=== PATIENT | male | born 1985 | race Caucasian/White ===

== ENCOUNTER 2021-09-11 00:49 | Emergency (ER) | payer SELFPAY ==
[2021-09-11] MEDS ORDERED: ONDANSETRON 4 MG/2 ML VIAL ONE (01:21)
[2021-09-11 01:25] LABS: Absolute Lymphocytes (CBC) 3.4 K/uL (0.7-4.9); Basophils % 0.4 % (0-1.3); Lymphocytes % 27.4 % (15.3-44.8); MPV 7.1 fL (7.6-11.3); RBC Red Blood Cell Count 4.89 M/uL (4.33-5.43)
[2021-09-11 01:29] LABS: Protime INR 0.97
[2021-09-11 01:47] LABS: ALT/SGPT 31 U/L (12-78); AST/SGOT 23 U/L (15-37); Alkaline Phosphatase 99 U/L (45-117); BUN Blood Urea Nitrogen 8 mg/dL (7-18); Bicarbonate 38 mmol/L (21-32); Bilirubin Direct < 0.1 mg/dL (0-0.2); Bilirubin Total 0.3 mg/dL (0.2-1.0); Glucose Level 202 mg/dL (74-106); Lipase 72 U/L (73-393); Potassium 3.9 mmol/L (3.5-5.1); Sodium Level 141 mmol/L (136-145); Troponin (Emerg Dept Use Only) < 0.02 ng/mL (0.0-0.045)
[2021-09-11 02:25] LABS: Urine Blood Trace-intact (Negative); Urine Glucose Negative (Negative); Urine Protein Trace (Negative); Urine pH 7.5 (5.0-7.0)
[2021-09-11 02:26] LABS: Barbiturates NEGATIVE (NEGATIVE); Benzodiazepines NEGATIVE (NEGATIVE); Cocaine NEGATIVE (NEGATIVE); METHAMPHETAM POSITIVE (NEGATIVE); Methadone NEGATIVE (NEGATIVE); Opiates NEGATIVE (NEGATIVE); Phencyclidine NEGATIVE (NEGATIVE); THC Cannibis POSITIVE (NEGATIVE)
[2021-09-11] MEDS ORDERED: NA CHLORIDE 0.9% 1,000 ML ONE ×2 (03:03→04:19)
[2021-09-11] MEDS ORDERED: LORazepam 2 MG/ML VIAL ONE (04:19)
[2021-09-11] MEDS ORDERED: cloNIDine HCL 0.1 MG TAB ONE ×2 (04:58→05:51)
--- NOTE | 2021-09-11 06:34 | EDPHYS ---
Physician Documentation [facility] Name: Nik Pierre Jr Age: 36 yrs Sex: Male : 1985 Arrival Date: 09/11/2021 Time: 00:51 Bed 17 Private MD: ED Physician Trent Epperson HPI: 09/11 00:45 This 36 yrs old Male presents to ER via EMS with complaints of 1. Overdose. mh7 00:45 The patient presents to the emergency department after a known overdose, that was mh7 accidental, a result of recreational substance abuse. Context: Method: the patient has a confirmed or suspected inhalation, of heroin/opium, Time: today, Extent: moderate exposure, the OD/poisoning occurred at at home, and was witnessed no one, with an unknown downtime, Psychiatric history: none, Previous OD/poisoning history: none. Associated signs and symptoms: Pertinent positives: loss of consciousness, nausea, Pertinent negatives: anxiety, apnea, auditory hallucinations, burning of skin, depression, diaphoresis, diarrhea, dizziness, incontinence, palpitations, shortness of breath, tearfulness, visual hallucinations, vomiting. Severity of symptoms: At their worst the symptoms were severe today, in the emergency department the symptoms have resolved after treatment by EMS personnel. Patient admits to snorting heroin tonight does not remember what happened after that. According to EMS the patient's found him unresponsive on the floor. He was unresponsive at the scene and became awake after receiving Narcan 2 mg IV.. Historical: - Allergies: 00:53 No Known Allergies; df1 - Home Meds: 00:53 None [Active]; df1 - PMHx: 00:53 None; df1 - PSHx: 00:53 None; df1 - Immunization history:: Adult Immunizations not up to date, Client reports having NOT received the Covid vaccine. - Social history:: Smoking status: Patient reports the use of cigarette tobacco products, Patient uses street drugs, heroin, marijuana, Methamphetamine (Meth). ROS: 00:45 Constitutional: Negative for fever, chills, and weight loss, Eyes: Negative for injury, mh7 pain, redness, and discharge, ENT: Negative for injury, pain, and discharge, Neck: Negative for injury, pain, and swelling, Cardiovascular: Negative for chest pain, palpitations, and edema, Respiratory: Negative for shortness of breath, cough, wheezing, and pleuritic chest pain. 00:45 Back: Negative for injury and pain, : Negative for injury, bleeding, discharge, and swelling, MS/Extremity: Negative for injury and deformity, Skin: Negative for injury, rash, and discoloration, Neuro: Negative for headache, weakness, numbness, tingling, and seizure, Psych: Negative for depression, anxiety, suicide ideation, homicidal ideation, and hallucinations, Allergy/Immunology: Negative for hives, rash, and allergies, Endocrine: Negative for neck swelling, polydipsia, polyuria, polyphagia, and marked weight changes, Hematologic/Lymphatic: Negative for swollen nodes, abnormal bleeding, and unusual bruising. 00:45 Abdomen/GI: Negative for abdominal pain, vomiting, diarrhea, constipation, abdominal cramps, abdominal distension, anorexia, dysphagia, hematemesis, black/tarry stool, rectal pain, rectal bleeding, bowel incontinence, flatulence. Exam: 00:45 Constitutional: This is a well developed, well nourished patient who is awake, alert, mh7 and in no acute distress. Head/Face: Normocephalic, atraumatic. Eyes: Pupils equal round and reactive to light, extra-ocular motions intact. Lids and lashes normal. Conjunctiva and sclera are non-icteric and not injected. Cornea within normal limits. Periorbital areas with no swelling, redness, or edema. Neck: Trachea midline, no thyromegaly or masses palpated, and no cervical lymphadenopathy. Supple, full range of motion without nuchal rigidity, or vertebral point tenderness. No Meningismus. Chest/axilla: Normal chest wall appearance and motion. Nontender with no deformity. No lesions are appreciated. Cardiovascular: Regular rate and rhythm with a normal S1 and S2. No gallops, murmurs, or rubs. Normal PMI, no JVD. No pulse deficits. Respiratory: Lungs have equal breath sounds bilaterally, clear to auscultation and percussion. No rales, rhonchi or wheezes noted. No increased work of breathing, no retractions or nasal flaring. Abdomen/GI: Soft, non-tender, with normal bowel sounds. No distension or tympany. No guarding or rebound. No evidence of tenderness throughout. Back: No spinal tenderness. No costovertebral tenderness. Full range of motion. Skin: Warm, dry with normal turgor. Normal color with no rashes, no lesions, and no evidence of cellulitis. MS/ Extremity: Pulses equal, no cyanosis. Neurovascular intact. Full, normal range of motion. Neuro: Awake and alert, GCS 15, oriented to person, place, time, and situation. Cranial nerves II-XII grossly intact. Motor strength 5/5 in all extremities. Sensory grossly intact. Cerebellar exam normal. Normal gait. Psych: Awake, alert, with orientation to person, place and time. Behavior, mood, and affect are within normal limits. Vital Signs: 00:51 BP 129 / 101; Pulse 87; Resp 18; Temp 98.2; Pulse Ox 100% on R/A; Weight 68.04 kg; df1 Height 5 ft. 5 in. (165.10 cm); Pain 0/10; 01:20 BP 144 / 100; Pulse 94; Resp 16; Pulse Ox 100% on R/A; df1 01:32 Pulse 85; Resp 18; Pulse Ox 100% on R/A; df1 02:40 BP 159 / 108; Pulse 72; Resp 18; Pulse Ox 100% on R/A; df1 04:07 BP 150 / 117; Pulse 86; Resp 18; Pulse Ox 100% on R/A; df1 05:24 BP 157 / 108; Pulse 86; Resp 16; Pulse Ox 100% on R/A; df1 06:08 BP 154 / 103; Pulse 94; Resp 18; Pulse Ox 100% on R/A; df1 00:51 Body Mass Index 24.96 (68.04 kg, 165.10 cm) df1 MDM: 06:30 Differential diagnosis: Ingestion/exposure to Heroin polypharmacy, over medication, mh7 hypoglycemia, closed head injury, intracranial hemorrhage, Polysubstance abuse. Data reviewed: vital signs, nurses notes, EMS record, lab test result(s), CBC, drug level(s), alcohol, electrolytes, urinalysis, urine drug screen, EKG, radiologic studies, CT scan. Data interpreted: Pulse oximetry: on room air is 100 %. Interpretation: normal. Counseling: I had a detailed discussion with the patient and/or guardian regarding: the historical points, exam findings, and any diagnostic results supporting the discharge/admit diagnosis, the presence of at least one elevated blood pressure reading (>120/80) during this emergency department visit, lab results, radiology results, the need for outpatient follow up, to return to the emergency department if symptoms worsen or persist or if there are any questions or concerns that arise at home. Response to treatment: the patient's symptoms have resolved after treatment, the patient's blood pressure is in an acceptable range, mental status has returned to baseline, the patient no longer shows bradycardia, the patient is not short of breath, the patient is not tachycardic, the patient's pain is gone, the patient's temperature has normalized, the patient is now symptom free, patient is well hydrated. 06:32 Patient medically screened. [facility] 09/11 00:55 Order name: Acetaminophen [facility] 09/11 00:55 Order name: Basic Metabolic Panel [facility] 09/11 00:55 Order name: CBC with Diff; Complete Time: 01:29 [facility] 09/11 00:55 Order name: ETOH Level; Complete Time: 02:22 [facility] 09/11 00:55 Order name: Hepatic Function; Complete Time: 02:22 09/11 00:55 Order name: PT-INR; Complete Time: 02:22 09/11 00:55 Order name: Ptt, Activated; Complete Time: 02:22 09/11 00:55 Order name: Salicylate; Complete Time: 02:22 09/11 00:55 Order name: Urine Drug Screen; Complete Time: 02:59 09/11 00:55 Order name: Acetaminophen Level; Complete Time: 02:22 [facility] 09/11 00:55 Order name: Basic Metabolic Panel; Complete Time: 02:22 [facility] 09/11 00:56 Order name: Troponin (emerg Dept Use Only); Complete Time: 02:22 09/11 00:56 Order name: Lipase; Complete Time: 02:22 [facility] 09/11 02:24 Order name: Urine Dipstick-Ancillary; Complete Time: 02:59 [facility] 09/11 00:55 Order name: EKG; Complete Time: 00:55 7 09/11 00:55 Order name: EKG - Nurse/Tech; Complete Time: 01:18 09/11 00:55 Order name: IV Saline Lock; Complete Time: 01:18 mh09/11 00:55 Order name: Labs collected and sent; Complete Time: 01:18 [facility] 09/11 00:55 Order name: Urine Dipstick-Ancillary (obtain specimen); Complete Time: 02:19 [facility] 09/11 00:56 Order name: CT Head C Spine [facility] 09/11 05:59 Order name: CPK; Complete Time: 06:30 df1 Administered Medications: 01:18 Drug: Zofran (Ondansetron) 4 mg Route: IVP; Site: right antecubital; df1 02:40 Drug: NS 0.9% 1000 ml Route: IV; Rate: 1000 ml; Site: right antecubital; df1 04:06 Follow up: IV Status: Completed infusion; IV Intake: 1000ml df1 04:06 Drug: NS 0.9% 1000 ml Route: IV; Rate: 1000 ml; Site: right antecubital; df1 06:57 Follow up: IV Status: Completed infusion; IV Intake: 1000ml df1 04:06 Drug: Ativan (LORazepam) 1 mg Route: IVP; Site: right antecubital; df1 06:57 Follow up: Response: No adverse reaction df1 04:37 Drug: cloNIDine 0.1 mg Route: PO; df1 06:57 Follow up: Response: No adverse reaction df1 05:30 Drug: cloNIDine 0.1 mg Route: PO; df1 06:57 Follow up: Response: No adverse reaction df1 Disposition Summary: 09/11/21 06:32 Discharge Ordered Location: Home [facility] Problem: new [facility] Symptoms: have improved [facility] Condition: Stable [facility] Diagnosis - Heroin overdose [facility] - Methamphetamine abuse [facility] Followup: [facility] - With: Private Physician - When: 1 - 2 days - Reason: Worsening of condition, Recheck today's complaints, Continuance of care, Re-evaluation by your physician Discharge Instructions: - Discharge Summary Sheet [facility] - Opioid Overdose [facility] - Methamphetamines Use Disorder [facility] Forms: - Medication Reconciliation Form [facility] - Thank You Letter [facility] - Antibiotic Education [facility] - Prescription Opioid Use [facility] Signatures: Dispatcher [employer] Trent Sylvester MD MD 7 Evelyn Moncada df1 Corrections: (The following items were deleted from the chart) 02:34 00:55 Suicide Screening ([place]) ordered. mh7 df1
--- NOTE | 2021-09-11 06:34 | ER ---
Nurse's Notes [facility] Name: Nik Pierre Jr Age: 36 yrs Sex: Male : 1985 Arrival Date: 09/11/2021 Time: 00:51 Bed 17 Private MD: Diagnosis: Heroin overdose;Methamphetamine abuse Presentation: 09/11 00:51 Chief complaint: Patient states: Heroin OD. Coronavirus screen: Vaccine status: Patient df1 reports being unvaccinated. Client denies travel out of the [place] in the last 14 days. At this time, the client does not indicate any symptoms associated with coronavirus-19. The client denies any previous COVID testing. Ebola Screen: Patient negative for fever greater than or equal to 101.5 degrees Fahrenheit, and additional compatible Ebola Virus Disease symptoms Patient denies exposure to infectious person. Patient denies travel to an Ebola-affected area in the 21 days before illness onset. Initial Sepsis Screen: Does the patient meet any 2 criteria? No. Patient's initial sepsis screen is negative. Does the patient have a suspected source of infection? No. Patient's initial sepsis screen is negative. Risk Assessment: Do you want to hurt yourself or someone else? Patient reports no desire to harm self or others. Onset of symptoms was September 11, 2021 at 00:00. 00:51 Method Of Arrival: EMS: [facility] df1 00:51 Acuity: ARCHANA 3 df1 02:36 Note Pt given ice chips, pillow and blanket. spouse at bedside. No further requests. df1 04:07 Note Provider notified of continuous HTN during ER visit. Orders received. df1 04:08 Note Pt requesting food and given sandwich and chips. df1 06:56 Note Pt sitting up in bed eating a sandwich. A\T\Ox4. PT TO BE DC'D HOME. df1 Triage Assessment: 01:19 General: Appears uncomfortable, unkempt, Behavior is calm, cooperative. Pain: Denies df1 pain. Historical: - Allergies: 00:53 No Known Allergies; df1 - Home Meds: 00:53 None [Active]; df1 - PMHx: 00:53 None; df1 - PSHx: 00:53 None; df1 - Immunization history:: Adult Immunizations not up to date, Client reports having NOT received the Covid vaccine. - Social history:: Smoking status: Patient reports the use of cigarette tobacco products, Patient uses street drugs, heroin, marijuana, Methamphetamine (Meth). Screenin:19 Abuse screen: Denies threats or abuse. Nutritional screening: No deficits noted. df1 Tuberculosis screening: No symptoms or risk factors identified. Fall Risk None identified. Assessment: 02:35 General: Appears in no apparent distress. Behavior is calm, cooperative. Pain: Denies df1 pain. Neuro: No deficits noted. Cardiovascular: No deficits noted. Respiratory: Airway is patent Respiratory effort is even, unlabored, Respiratory pattern is regular, symmetrical. GI: Reports nausea. : No deficits noted. EENT: No deficits noted. Derm: No deficits noted. Musculoskeletal: No deficits noted. 02:40 Neuro: Level of Consciousness is awake, alert, obeys commands, Oriented to person, df1 place, time, situation, Water Reuse Program Manager are equal bilaterally Moves all extremities. Full function Gait is steady, Speech is normal, Facial symmetry appears normal, Pupils are PERRLA, Intact. Vital Signs: 00:51 BP 129 / 101; Pulse 87; Resp 18; Temp 98.2; Pulse Ox 100% on R/A; Weight 68.04 kg; df1 Height 5 ft. 5 in. (165.10 cm); Pain 0/10; 01:20 BP 144 / 100; Pulse 94; Resp 16; Pulse Ox 100% on R/A; df1 01:32 Pulse 85; Resp 18; Pulse Ox 100% on R/A; df1 02:40 BP 159 / 108; Pulse 72; Resp 18; Pulse Ox 100% on R/A; df1 04:07 BP 150 / 117; Pulse 86; Resp 18; Pulse Ox 100% on R/A; df1 05:24 BP 157 / 108; Pulse 86; Resp 16; Pulse Ox 100% on R/A; df1 06:08 BP 154 / 103; Pulse 94; Resp 18; Pulse Ox 100% on R/A; df1 00:51 Body Mass Index 24.96 (68.04 kg, 165.10 cm) df1 ED Course: 00:51 Patient arrived in ED. df1 00:51 Evelyn Moncada is Primary Nurse. df1 00:53 Triage completed. df1 00:54 Trent Epperson MD is Attending Physician. 7 01:17 No provider procedures requiring assistance completed. Inserted saline lock: 20 gauge df1 in right antecubital area, using aseptic technique. 01:18 Lipase Sent. df1 01:18 Troponin (emerg Dept Use Only) Sent. df1 01:18 Acetaminophen Level Sent. df1 01:18 Basic Metabolic Panel Sent. df1 01:18 Acetaminophen Sent. df1 01:18 Basic Metabolic Panel Sent. df1 01:19 CBC with Diff Sent. df1 01:19 ETOH Level Sent. df1 01:19 Hepatic Function Sent. df1 01:19 PT-INR Sent. df1 01:19 Ptt, Activated Sent. df1 01:19 Salicylate Sent. df1 01:19 Arm band placed on right wrist. df1 01:20 Patient has correct armband on for positive identification. Placed in gown. Bed in low df1 position. Call light in reach. Side rails up X 1. Side rails up X2. monitor worker on. Pulse ox on. NIBP on. 02:15 CT Head C Spine In Process Unspecified. EDMS 02:20 Urine Drug Screen Sent. df1 07:09 IV discontinued, intact, No redness/swelling at site. Pressure dressing applied. df1 Administered Medications: 01:18 Drug: Zofran (Ondansetron) 4 mg Route: IVP; Site: right antecubital; df1 02:40 Drug: NS 0.9% 1000 ml Route: IV; Rate: 1000 ml; Site: right antecubital; df1 04:06 Follow up: IV Status: Completed infusion; IV Intake: 1000ml df1 04:06 Drug: NS 0.9% 1000 ml Route: IV; Rate: 1000 ml; Site: right antecubital; df1 06:57 Follow up: IV Status: Completed infusion; IV Intake: 1000ml df1 04:06 Drug: Ativan (LORazepam) 1 mg Route: IVP; Site: right antecubital; df1 06:57 Follow up: Response: No adverse reaction df1 04:37 Drug: cloNIDine 0.1 mg Route: PO; df1 06:57 Follow up: Response: No adverse reaction df1 05:30 Drug: cloNIDine 0.1 mg Route: PO; df1 06:57 Follow up: Response: No adverse reaction df1 Intake: 04:06 IV: 1000ml; Total: 1000ml. df1 06:57 IV: 1000ml; Total: 2000ml. df1 Outcome: 06:32 Discharge ordered by . Raijv 07:09 Discharged to home ambulatory. df1 07:09 Condition: good 07:09 Discharge instructions given to patient, significant other, Instructed on discharge instructions, follow up and referral plans. Demonstrated understanding of instructions, follow-up care. 07:09 Patient left the ED. df1 Signatures: Dispatcher [employer] Trent Sylvester MD MD [facility] Evelyn Moncada df1
[2021-09-11 07:17] VITALS: TEMP 98.2; O2SAT 100
[2021-09-11 07:25] VITALS: BP 154/103
--- NOTE | 2021-09-11 14:26 | RAD REPORT ---
CLINICAL HISTORY: The patient is 36 years old and is Male; trauma TECHNIQUE: Axial computed tomography images of the head/brain and cervical spine without intravenous contrast. Sagittal and coronal reformatted images were created and reviewed. This CT exam was pe rformed using one or more of the following dose reduction techniques: automated exposure control, a djustment of the mA and/or kV according to patient size, and/or use of iterative reconstruction techn ique. COMPARISON: No relevant prior studies available. FINDINGS: Brain: Unremarkable. No hemorrhage. No significant white matter disease. No edema. Ventricles: Unremarkable. No ventriculomegaly. Skull: No acute fracture. Sinuses: Unremarkable as visualized. No acute sinusitis. Mastoid air cells: Unremarkable as visualized. No mastoid effusion. Vertebrae: No acute cervical spine fracture or subluxation. Straightening of the normal cervical lordosis. Discs/spinal canal/neural foramina: No acute findings. No spinal canal stenosis. Soft tissues: Mild left posterior scalp swelling. IMPRESSION: 1. No acute intracranial abnormality. 2. No acute cervical spine fracture or subluxation. Electronically signed by: uHnter Mancilla MD 09/11/2021 2:40 AM CDT Due to temporary technical issues with the PACS/Fluency reporting system, reports are being signed by the in house radiologists without review as a courtesy to insure prompt reporting. The interpreting radiologist is fully responsible for the content of the report.
== END 2021-09-11 07:09 | disposition home or self-care (01) ==
LOC: ER 00:49
DX: T40.1X1A Poisoning by heroin, accidental (unintentional), initial encounter (principal); F15.10 Other stimulant abuse, uncomplicated; F17.210 Nicotine dependence, cigarettes, uncomplicated
CPT/HCPCS: 36415; 70450; 72125; 80048; 80076; 80307; 80320; 80329; 81003; 82550; 83690; 84484; 85025; 85610; 85730; 93005; 96361; 96374; 96375; 99284; J2405; J7030

== ENCOUNTER 2021-09-24 15:25 | Emergency (ER) | payer SELFPAY ==
[2021-09-24] MEDS ORDERED: NA CHLORIDE 0.9% 1,000 ML ONE (15:38)
[2021-09-24 15:54] LABS: Absolute Lymphocytes (CBC) 3.6 K/uL (0.7-4.9); Basophils % 0.5 % (0-1.3); Hematocrit 41.7 % (39.6-49.0); Lymphocytes % 27.2 % (15.3-44.8); MPV 7.3 fL (7.6-11.3); RBC Red Blood Cell Count 4.56 M/uL (4.33-5.43)
[2021-09-24 16:06] LABS: Protime INR 0.97
[2021-09-24 16:08] LABS: Albumin 4.3 g/dL (3.4-5.0); BUN Blood Urea Nitrogen 20 mg/dL (7-18); Bicarbonate 31 mmol/L (21-32); Glucose Level 80 mg/dL (74-106); Potassium 3.5 mmol/L (3.5-5.1); Sodium Level 142 mmol/L (136-145)
[2021-09-24 16:16] LABS: ALT/SGPT 98 U/L (12-78); AST/SGOT 60 U/L (15-37); Alkaline Phosphatase 89 U/L (45-117); Bilirubin Direct 0.1 mg/dL (0-0.2); Bilirubin Total 0.5 mg/dL (0.2-1.0); Protein, Total 8.1 g/dL (6.4-8.2)
--- NOTE | 2021-09-24 16:19 | RAD REPORT ---
EXAM DESCRIPTION: CT - [id number] - 09/24/2021 4:11 pm CLINICAL HISTORY: Trauma, head and neck injury. PAIN COMPARISON: Head C Spine Mpr Wo Con dated 09/11/2021 TECHNIQUE: Axial 5 mm thick images of the head were obtained. Axial 2 mm thick images of the cervical spine were obtained with sagittal and coronal reconstruction images generated and reviewed. All CT scans are performed using dose optimization technique as appropriate and may include automated exposure control or mA/KV adjustment according to patient size. FINDINGS: CT HEAD WITHOUT CONTRAST: No acute hemorrhage, hydrocephalus or extra-axial collection is identified.No areas of brain edema or midline shift. The paranasal sinuses and mastoids are clear.The calvarium is intact. CT CERVICAL SPINE WITHOUT CONTRAST: No fracture or subluxation.No prevertebral soft tissues swelling is identified. IMPRESSION: No acute intracranial or cervical spine findings.
--- NOTE | 2021-09-24 16:23 | RAD REPORT ---
EXAM DESCRIPTION: CT - CTFB CLINICAL HISTORY: PAIN COMPARISON: No comparisons TECHNIQUE: Axial 2 mm thick images of the face were obtained with sagittal and coronal reconstructio n images. All CT scans are performed using dose optimization technique as appropriate and may include automated exposure control or mA/KV adjustment according to patient size. FINDINGS: No acute facial bone fracture is seen.The mandible is intact. The globes and orbital contents are grossly unremarkable.The paranasal sinuses and mastoids are clear . The mandibular condyles are subluxed anteriorly at the bilateral temporomandibular joints. This is of uncertain chronicity. IMPRESSION: No facial fracture identified. At the temporomandibular joints, the mandibular condyles are subluxed anteriorly and inferiorly. This is of uncertain chronicity. No mandibular fracture is id entified. No facial fractures seen.
[2021-09-24 16:27] LABS: Urine Blood Trace-lysed (Negative); Urine Glucose Negative (Negative); Urine Protein Negative (Negative); Urine Specific Gravity 1.025 (1.005-1.030)
[2021-09-24] MEDS ORDERED: IBUPROFEN 400 MG TAB ONE (16:28)
[2021-09-24] MEDS ORDERED: LIDOCAINE 1% MPF 5 ML VIAL ONE (16:47)
[2021-09-24 16:55] LABS: Barbiturates NEGATIVE (NEGATIVE); Benzodiazepines POSITIVE (NEGATIVE); Cocaine NEGATIVE (NEGATIVE); METHAMPHETAM POSITIVE (NEGATIVE); Methadone NEGATIVE (NEGATIVE); Opiates NEGATIVE (NEGATIVE); Phencyclidine NEGATIVE (NEGATIVE); THC Cannibis POSITIVE (NEGATIVE)
[2021-09-24] MEDS ORDERED: LIDOCAINE 1% MPF 30 ML VIAL ONE (17:05)
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
[2021-09-24 20:03] VITALS: O2SAT 100
[2021-09-24 20:06] VITALS: BP 118/78; TEMP 98
--- NOTE | 2021-09-26 18:29 | EKG ---
Test Date: 2021-09-24 Test Time: 16:36:08 Home Health Provider: KIMBER MEASUREMENT RESULTS: Intervals: Rate: 86 OK: 116 QRSD: 88 QT: 378 QTc: 452 Prospect: P: 69 OK: 116 QRS: 81 T: 65 INTERPRETIVE STATEMENTS: Normal sinus rhythm RSR' or QR pattern in V1 suggests right ventricular conduction delay Borderline ECG Compared to ECG 09/11/2021 01:17:53 RSR' in V1 or V2 now present Atrial abnormality no longer present Prolonged QT interval no longer present Electronically Signed On 09-26-21 18:24:07 SKILLS TRAINER by Vitaly Card
== END 2021-09-24 19:47 | disposition home or self-care (01) ==
LOC: ER 15:25
PROC: 0CQ1XZZ Repair Lower Lip, External Approach (ICD-10-PCS; principal; 2021-09-24)
DX: S01.511A Laceration without foreign body of lip, initial encounter (principal); T42.4X5A Adverse effect of benzodiazepines, initial encounter; I10 Essential (primary) hypertension; F17.210 Nicotine dependence, cigarettes, uncomplicated
CPT/HCPCS: 36415; 70450; 70486; 72125; 76377; 80048; 80076; 80307; 80320; 80329; 81003; 85025; 85610; 85730; 93005; 96360; 99284; J7030

== ENCOUNTER 2022-02-16 23:46 | Observation (INO) | payer SELFPAY ==
[2022-02-17] MEDS ORDERED: MORPHINE 4 MG/ML SYR ONE ×2 (01:56→09:08)
[2022-02-17] MEDS ORDERED: ONDANSETRON 4 MG/2 ML VIAL ONE (01:56)
[2022-02-17] MEDS ORDERED: VANCOMYCIN 1 GM/VIAL ONE (01:56)
[2022-02-17] MEDS ORDERED: CLINDAMYCIN 900MG/D5W 900 MG/50 ML IVPB IV ONE (01:57)
[2022-02-17] MEDS ORDERED: NA CHLORIDE 0.9% 500 ML ONE (01:57)
[2022-02-17 02:10] LABS: Absolute Lymphocytes (CBC) 3.2 K/uL (0.7-4.9); Hematocrit 44.1 % (39.6-49.0); Lymphocytes % 19.1 % (15.3-44.8); MPV 7.6 fL (7.6-11.3); RBC Red Blood Cell Count 4.87 M/uL (4.33-5.43)
--- NOTE | 2022-02-17 02:10 | P.HP ---
Certification for Inpatient Patient admitted to: Observation With expected LOS: <2 Midnights Patient will require the following post-hospital care: None Practitioner: I am a practitioner with admitting privileges, knowledge of patient current condition, hospital course, and medical plan of care. Services: Services provided to patient in accordance with Admission requirements found in Title 42 Section 412.3 of the Code of Federal Regulations Patient History Date of Service: 02/17/22 Reason for admission: Nasal abscess History of Present Illness: 36-year-old male with history of hypertension who is currently not on any medications presents emergency department for swelling and pain of the nose, upper lip. Patient reports that today before yesterday he was using a nose hair srinivas and noticed swelling and pain starting yesterday morning. Patient has significant swelling of the upper lip, pain in the left nare. Patient was evaluated by the ED physician who consulted with ENT, plan is for admission to the hospital service and consultation with ENT in the morning. CBC/CMP and CT maxillofacial pending. - Past Medical/Surgical History -: Hypertension -: none Psychosocial/ Personal History: Works at [employer], lives at home with family - Family History Family History: Reviewed- Non-Contributory - Social History Smoking Status: Current every day smoker Counseled patient to stop smoking for: less than 10 minutes Smoking therapy provided: No Alcohol use: Yes CD- Drugs: No Caffeine use: No Place of Residence: Home Review of Systems 10-point ROS is otherwise unremarkable Integumentary: Other (Facial swelling/left nare/upper lip), As per HPI Physical Examination - Physical Exam General: Alert, In no apparent distress, Oriented x3 HEENT: Atraumatic, PERRLA, Mucous membr. moist/pink, EOMI, Sclerae nonicteric Neck: Supple, 2+ carotid pulse no bruit, No LAD, Without JVD or thyroid abnormality Respiratory: Clear to auscultation bilaterally, Normal air movement Cardiovascular: Regular rate/rhythm, Normal S1 S2 Gastrointestinal: Normal bowel sounds, No tenderness Musculoskeletal: No tenderness, Swelling (Left nare, upper lip), Tenderness Integumentary: No rashes Neurological: Normal speech, Normal strength at 5/5 x4 extr, Normal tone, Normal affect Assessment and Plan - Plan Assessment: Nasal abscess Hypertension Plan: Nasal abscess: Continue Bactroban, clindamycin. ENT consulted n.p.o. for now. As needed pain medications. CT pending for further evaluation. Hypertension: Not on any medications at home will monitor blood pressure throughout hospitalization may require medication at discharge. DVT PPX: SCD Code status: Full Discharge Plan: Home Plan to discharge in: 24 Hours - Advance Directives Does patient have a Living Will: No Does patient have a Durable POA for Healthcare: No - Code Status/Comfort Care Code Status Assessed: Yes (Full) Critical Care: No Time Spent Managing Pts Care (In Minutes): 55
[2022-02-17 02:28] LABS: ALT/SGPT 23 U/L (12-78); AST/SGOT 11 U/L (15-37); Albumin 3.8 g/dL (3.4-5.0); Alkaline Phosphatase 80 U/L (45-117); BUN Blood Urea Nitrogen 12 mg/dL (7-18); Bicarbonate 29 mmol/L (21-32); Bilirubin Total 0.3 mg/dL (0.2-1.0); Glucose Level 98 mg/dL (74-106); Potassium 3.5 mmol/L (3.5-5.1); Protein, Total 8.1 g/dL (6.4-8.2); Sodium Level 138 mmol/L (136-145)
[2022-02-17] MEDS ORDERED: ONDANSETRON 4 MG/2 ML VIAL IV PRN (03:50)
[2022-02-17] MEDS ORDERED: NA CHLORIDE 0.9% 1,000 ML IV SCH (03:50)
[2022-02-17] MEDS ORDERED: MORPHINE 2 MG/ML SYR IV PRN ×2 (03:50→07:58)
--- NOTE | 2022-02-17 03:53 | ER ---
Nurse's Notes [facility] Name: Nik Pierre Jr Age: 36 yrs Sex: Male : 1985 Arrival Date: 02/16/2022 Time: 23:48 Bed 26 Private MD: Diagnosis: Cutaneous abscess of face-nasal Presentation: 02/16 23:58 Chief complaint: Patient states: "I used a new nose srinivas the other day. Today I woke tw5 up with so much pressure. I tried to squeeze it. It has only gotten worse. My family has been calling me a 'who' all day because it is make my lip swell.". Coronavirus screen: Vaccine status: Patient reports being unvaccinated. Ebola Screen: Patient negative for fever greater than or equal to 101.5 degrees Fahrenheit, and additional compatible Ebola Virus Disease symptoms Patient denies exposure to infectious person. Patient denies travel to an Ebola-affected area in the 21 days before illness onset. Initial Sepsis Screen: Does the patient meet any 2 criteria? HR > 90 bpm. Does the patient have a suspected source of infection? Yes: Skin breakdown/wound. Risk Assessment: Do you want to hurt yourself or someone else? Patient reports no desire to harm self or others. Onset of symptoms was February 16, 2022. 23:58 Method Of Arrival: Ambulatory [facility] 23:58 Acuity: ARCHANA 3 tw5 Triage Assessment: 02/17 00:00 General: Appears uncomfortable. General: Behavior is calm, cooperative, appropriate for tw5 age. Pain: Complains of pain in nose Pain currently is 10 out of 10 on a pain scale. Historical: - Allergies: 00:00 No Known Allergies; tw5 - Home Meds: 00:00 None [Active]; tw5 - PMHx: 00:00 Hypertensive disorder; tw5 - PSHx: 00:00 None; tw5 - Immunization history:: Flu vaccine is not up to date. - Social history:: Smoking status: Patient reports the use of cigarette tobacco products, smokes one-half pack cigarettes per day. Screenin:10 Abuse screen: Denies threats or abuse. Denies injuries from another. Nutritional tk1 screening: No deficits noted. Tuberculosis screening: No symptoms or risk factors identified. Fall Risk None identified. Assessment: 00:10 General: Appears uncomfortable, slender, well groomed, well developed, well nourished, tk1 Behavior is calm, cooperative, appropriate for age. Pain: Complains of pain in nasal septum and left nostril Pain radiates to philtrum, upper vermilion border and upper lip Pain currently is 10 out of 10 on a pain scale. Quality of pain is described as pressure, sharp, Pain began 2-3 days ago. Is continuous. Neuro: Level of Consciousness is awake, alert, obeys commands, Oriented to person, place, time, situation, Appropriate for age Marketing Technology Coordinator are equal bilaterally Moves all extremities. Gait is steady, Speech is normal, Facial symmetry appears normal. Cardiovascular: Capillary refill < 3 seconds is brisk in bilateral fingers. Respiratory: Airway is patent Respiratory effort is even, unlabored, Respiratory pattern is regular, symmetrical. GI: No deficits noted. No signs and/or symptoms were reported involving the gastrointestinal system. : No deficits noted. No signs and/or symptoms were reported regarding the genitourinary system. EENT: Nares on left redness and edema.. Musculoskeletal: No deficits noted. No signs and/or symptoms reported regarding the musculoskeletal system. Vital Signs: 02/16 23:58 BP 149 / 96; Pulse 103; Resp 20; Temp 97.9; Pulse Ox 100% on R/A; Weight 72.57 kg; tw5 Height 5 ft. 5 in. (165.10 cm); Pain 10/10; 23:58 Body Mass Index 26.63 (72.57 kg, 165.10 cm) tw5 ED Course: 23:48 Patient arrived in ED. kc5 02/17 00:00 Triage completed. tw5 00:00 Arm band placed on left wrist. tw5 00:08 Shiloh Cho is Primary Nurse. tk1 00:10 Patient has correct armband on for positive identification. Call light in reach. tk1 00:10 No provider procedures requiring assistance completed. tk1 00:50 Darryn Moulton MD is Attending Physician. tylor 01:37 Ramón Schaefer MD is Hospitalizing Provider. tylor 02:00 Inserted saline lock: 18 gauge in right forearm, using aseptic technique. Blood tk1 collected. 04:17 CBC with Diff Sent. sm5 04:17 Comprehensive Metabolic Panel Sent. sm5 04:17 SARS-COV-2 RT PCR (Document "Date of Onset" if Symptomatic) Sent. [facility] Administered Medications: 02:15 Drug: morphine 4 mg Route: IVP; Rate: 2 mg/min; Infused Over: 2 mins; Site: right tk1 forearm; 07:06 Follow up: Response: No adverse reaction solomon 02:20 Drug: Clindamycin 900 mg Route: IVPB; Rate: 100 ml/hr; Infused Over: 30 mins; Site: tk1 right forearm; Delivery: Primary tubing; 07:06 Follow up: IV Status: Completed infusion solomon 02:20 Drug: Zofran (Ondansetron) 4 mg Route: IVP; Rate: 2 mg/min; Infused Over: 2 mins; Site: tk1 right forearm; 07:06 Follow up: Response: No adverse reaction solomon 02:20 Drug: Bactroban (mupirocin) Ointment 2 % 1 application Route: Topical; Site: affected tk1 area; 07:06 Follow up: Response: No adverse reaction solomon 02:55 Dru grams of (vancoMYCIN 2 grams, NS 0.9% 500 ml) Route: IVPB; Rate: calculated tk1 rate; Infused Over: 2 hrs; Site: right forearm; Delivery: Primary tubing; 07:06 Follow up: IV Status: Completed infusion solomon 10:00 Drug: Ketamine 0.5 mg/kg Route: IVP; Site: right forearm; iw 10:00 Drug: Versed (midazolam) 1 mg Route: IVP; Site: right forearm; Outcome: 01:38 Decision to Hospitalize by Provider. [facility] 16:12 Patient left the ED. iw Signatures: Darryn Moulton MD MD cha Williams, Irene RN [place] 5 Lauren Grider kc5 Anna Correa RN RN 5 Thi Keane RN RN ha Kirby, Tammie tk
--- NOTE | 2022-02-17 03:53 | EDPHYS ---
Physician Documentation [facility] Name: Nik Pierre Jr Age: 36 yrs Sex: Male : 1985 Arrival Date: 02/16/2022 Time: 23:48 Bed 26 Private MD: HARLEY Physician Darryn Moulton HPI: 02/17 01:30 This 36 yrs old Male presents to ER via Ambulatory with complaints of Facial tylor Swelling. 01:30 The patient presents with a nose bleed. tylor Historical: - Allergies: 00:00 No Known Allergies; tw5 - Home Meds: 00:00 None [Active]; tw5 - PMHx: 00:00 Hypertensive disorder; tw5 - PSHx: 00:00 None; tw5 - Immunization history:: Flu vaccine is not up to date. - Social history:: Smoking status: Patient reports the use of cigarette tobacco products, smokes one-half pack cigarettes per day. ROS: 01:35 Constitutional: Negative for fever, chills, and weight loss, Eyes: Negative for injury, tylor pain, redness, and discharge, Neck: Negative for injury, pain, and swelling, Cardiovascular: Negative for chest pain, palpitations, and edema, Respiratory: Negative for shortness of breath, cough, wheezing, and pleuritic chest pain, Abdomen/GI: Negative for abdominal pain, nausea, vomiting, diarrhea, and constipation, Back: Negative for injury and pain, : Negative for injury, bleeding, discharge, and swelling, MS/Extremity: Negative for injury and deformity, Skin: Negative for injury, rash, and discoloration, Neuro: Negative for headache, weakness, numbness, tingling, and seizure. 01:35 ENT: Positive for of the nose and mouth, nasal discharge. Exam: 01:35 Constitutional: This is a well developed, well nourished patient who is awake, alert, tylor and in no acute distress. Head/Face: Normocephalic, atraumatic. Eyes: Pupils equal round and reactive to light, extra-ocular motions intact. Lids and lashes normal. Conjunctiva and sclera are non-icteric and not injected. Cornea within normal limits. Periorbital areas with no swelling, redness, or edema. Neck: Trachea midline, no thyromegaly or masses palpated, and no cervical lymphadenopathy. Supple, full range of motion without nuchal rigidity, or vertebral point tenderness. No Meningismus. Chest/axilla: Normal chest wall appearance and motion. Nontender with no deformity. No lesions are appreciated. Cardiovascular: Regular rate and rhythm with a normal S1 and S2. No gallops, murmurs, or rubs. Normal PMI, no JVD. No pulse deficits. Respiratory: Lungs have equal breath sounds bilaterally, clear to auscultation and percussion. No rales, rhonchi or wheezes noted. No increased work of breathing, no retractions or nasal flaring. Abdomen/GI: Soft, non-tender, with normal bowel sounds. No distension or tympany. No guarding or rebound. No evidence of tenderness throughout. Back: No spinal tenderness. No costovertebral tenderness. Full range of motion. Male : Normal genitalia with no discharge or lesions. Skin: Warm, dry with normal turgor. Normal color with no rashes, no lesions, and no evidence of cellulitis. MS/ Extremity: Pulses equal, no cyanosis. Neurovascular intact. Full, normal range of motion. Neuro: Awake and alert, GCS 15, oriented to person, place, time, and situation. Cranial nerves II-XII grossly intact. Motor strength 5/5 in all extremities. Sensory grossly intact. Cerebellar exam normal. Normal gait. Psych: Awake, alert, with orientation to person, place and time. Behavior, mood, and affect are within normal limits. 01:35 ENT: Nose: External nose: erythema is noted, swelling is noted, apex of the nose, nasal septum, right nostril and left nostril. Vital Signs: 02/16 23:58 BP 149 / 96; Pulse 103; Resp 20; Temp 97.9; Pulse Ox 100% on R/A; Weight 72.57 kg; tw5 Height 5 ft. 5 in. (165.10 cm); Pain 10/10; 23:58 Body Mass Index 26.63 (72.57 kg, 165.10 cm) tw5 Procedures: 02/17 10:36 Moderate sedation: Pre-procedure assessment: the patient has been NPO 12 hour(s) prior rn to arrival, ASA physical classification: I - healthy, no underlying organic disease, Airway assessment: able to hyperextend neck, able to maintain airway, can open mouth without difficulty, Monitoring during procedure: cardiac nurse practitioner, continuous pulse oximetry, nurse at bedside at all times, Medications employed: Ketamine, 35 mg(s), Versed, 2 mg(s), Post-procedure assessment: the patient is not sedated, Respiratory status: even and unlabored, a reversal agent was not used. MDM: 00:50 Patient medically screened. [facility] 01:36 Data reviewed: vital signs, nurses notes, lab test result(s). Data interpreted: Cardiac tylor monitor: rate is 103 beats/min, rhythm is regular, Pulse oximetry: on room air is 100 %. Counseling: I had a detailed discussion with the patient and/or guardian regarding: the historical points, exam findings, and any diagnostic results supporting the discharge/admit diagnosis, lab results, the need for further work-up and treatment in the hospital. 10:36 ED course: Dr Seo called, requested moderate sedation since can't get into OR. rn Moderate sedation performed, tolerated well with ketamine and versed. . 02/17 01:30 Order name: CBC with Diff [facility] 02/17 01:30 Order name: Comprehensive Metabolic Panel [facility] 02/17 02:08 Order name: SARS-COV-2 RT PCR (Document "Date of Onset" if Symptomatic) [facility] 02/17 03:47 Order name: CBC with Automated Diff [facility] 02/17 03:47 Order name: Comprehensive Metabolic Panel [facility] 02/17 03:47 Order name: SARS-COV-2 RT PCR [facility] 02/17 01:58 Order name: Maxillofacial W/Cont CT la1 Administered Medications: 02:15 Drug: morphine 4 mg Route: IVP; Rate: 2 mg/min; Infused Over: 2 mins; Site: right tk1 forearm; 07:06 Follow up: Response: No adverse reaction solomon 02:20 Drug: Clindamycin 900 mg Route: IVPB; Rate: 100 ml/hr; Infused Over: 30 mins; Site: tk1 right forearm; Delivery: Primary tubing; 07:06 Follow up: IV Status: Completed infusion solomon 02:20 Drug: Zofran (Ondansetron) 4 mg Route: IVP; Rate: 2 mg/min; Infused Over: 2 mins; Site: tk1 right forearm; 07:06 Follow up: Response: No adverse reaction solomon 02:20 Drug: Bactroban (mupirocin) Ointment 2 % 1 application Route: Topical; Site: affected tk1 area; 07:06 Follow up: Response: No adverse reaction solomon 02:55 Dru grams of (vancoMYCIN 2 grams, NS 0.9% 500 ml) Route: IVPB; Rate: calculated tk1 rate; Infused Over: 2 hrs; Site: right forearm; Delivery: Primary tubing; 07:06 Follow up: IV Status: Completed infusion solomon 10:00 Drug: Ketamine 0.5 mg/kg Route: IVP; Site: right forearm; iw 10:00 Drug: Versed (midazolam) 1 mg Route: IVP; Site: right forearm; iw Disposition Summary: 02/17/22 01:38 Hospitalization Ordered Hospitalization Status: Observation tylor Provider: Ramón Schaefer cha Condition: Stable tylor Problem: new tylor Symptoms: have improved tylor Bed/Room Type: Standard tylor Location: [facility] ER HOLD(02/17/22 02:30) cg Room Assignment: ERHOLD-(02/17/22 02:30) cg Diagnosis - Cutaneous abscess of face - nasal tylor Forms: - Medication Reconciliation Form tylor - SBAR form tylor Signatures: Dispatcher [employer] EDDarryn Harris MD MD cha Williams, Irene RN JOON Narinder Schaefer MD MD rn Garcia, Cindy, RN RN cg Wood, Tiffany [facility] Shiloh Cho1 Thi Keane RN Corrections: (The following items were deleted from the chart) 02:30 01:38 Telemetry/MedSurg (observation) tylor cg 02:30 01:38 tylor cg
[2022-02-17 03:55] VITALS: BMI 26.6
[2022-02-17] MEDS ORDERED: INFLUENZA VACCINE (for 6+ mo) 0.5 ML DOSE IMVAC ONE (08:00)
[2022-02-17] MEDS ORDERED: MUPIROCIN 2% OINT 22GM TUBE TOP SCH (09:00)
[2022-02-17] MEDS ORDERED: CLINDAMYCIN INJ 600 MG in NA CHLORIDE 0.9% 50 ML IV SCH (09:00)
[2022-02-17] MEDS ORDERED: MUPIROCIN 2% OINT 22GM TUBE TOP ONE (09:08)
[2022-02-17] MEDS ORDERED: NACHLORIDE 0.45% 0 ML IV ONE (09:09)
[2022-02-17] MEDS ORDERED: NA CHLORIDE 0.9% 1,000 ML ONE (09:14)
[2022-02-17] MEDS ORDERED: MORPHINE 2 MG/ML SYR ONE (09:19)
[2022-02-17] MEDS ORDERED: KETAMINE HCL 500 MG/5 ML VIAL ONE (09:41)
[2022-02-17] MEDS ORDERED: MIDAZOLAM HCL 2 MG/2 ML INJ ONE (09:42)
[2022-02-17] MEDS ORDERED: SILVER NITRATE 1 APPL TOP ONE (09:51)
[2022-02-17 13:07] VITALS: BP 144/102; TEMP 98.8
[2022-02-17 16:44] VITALS: O2SAT 100
--- NOTE | 2022-02-20 12:36 | CON ---
Date of Consultation: 02/17/2022 Chief Complaint: Upper lip and nasal swelling. History Of Present Illness: The patient is a pleasant 36-year-old male, who presented acutely to the emergency room after a 2-day history of developing an acute swelling extending to right upper lip and he states that this may have started after using a nasal hair srinivas. He also had an abscess on his right cheek and it had to be drained in the past. He presented in the emergency room, was placed on IV fluids and clindamycin antibiotics, and I was consulted for further evaluation. Upon arrival to bedside, the patient is in no acute distress, but he has significant right upper lip swelling extending to the columella of the nose and bilateral nasal vestibules with a slight area of excoriation at the base of the right nasal cavity. He states that it is exquisitely tender to palpation and the skin overlying the area is erythematous. He denies rhinorrhea, postnasal drip, recurrent sinus infections, headache, cough, shortness of breath, or other ENT complaints today. Past Medical History: None. Medications: None. Allergies: NO KNOWN DRUG ALLERGIES. Past Surgical History: Denies. Social History: The patient smokes daily and he is a social smoker. He is unsure how many cigarettes he smokes per day. He has occasional alcohol, but does not drink daily. No illicit drugs. Review of Systems: Eyes: No epiphora, eye itching, or redness. Head: Denies headache, trauma, or skin lesion. Ears: Denies otorrhea, otalgia, or mastoid pain. Nose: Bilateral nasal vestibule swelling and erythematous skin. Oral Cavity: Right upper lip swelling and multiple carious teeth. Right upper lip pain, but no drainage. Throat: Denies sore throat, dysphagia, or odynophagia. Neck: Positive for multiple lymph nodes, but denies large neck mass. Physical Examination: Vital Signs: Stable. Heart rate is 81, blood pressure 130/77, and the patient is afebrile 97.8. Eyes: PERRLA/EOMI. Head: Atraumatic, normocephalic. Ears: Exam deferred. Nose: Nasal speculum exam demonstrates bilateral nasal columella and vestibule edema and palpable fluctuance with a small cutaneous fistula noted in the left nasal vestibule. I was able to express some purulence out of the pinpoint fistula. Oral Cavity: Significant right upper lip swelling extending from gingivobuccal sulcus to the left nasal vestibule and is exquisitely tender to palpation. Fluctuant pocket measures at least 3 cm. Rest of oral cavity exam demonstrates moderate gingivitis and multiple carious teeth. Moist oral mucosa. Midline uvula. No exudate. Procedure: After obtaining written consent, the patient was given Versed for light sedation and I made an incision just anterior to the right gingivobuccal sulcus utilizing a #15 blade scalpel, making an incision approximately 2 cm in length and I was able to express approximately 3 mL of yellow mucopurulent secretions. Gram stain and culture and sensitivity were obtained with culture swabs. Once the fluid was expressed, I opened up the pocket utilizing Metzenbaum scissors, and once the abscess was decompressed I cauterized the bleeding mucosal edges with silver nitrate cautery sticks and then I packed the wound with quarter-inch iodoform. The patient tolerated the procedure well and he awakened in excellent condition. Diagnoses: 1. Oronasal abscess, status post incision and drainage with packing. 2. Dental caries. Recommendations: 1. Prescription was given for Bactrim DS 1 pill b.i.d. for 10 days. 2. Start chlorhexidine gluconate 15 mL p.o. swish, gargle, spit b.i.d. 3. Follow up in 4 days in my clinic for packing removal and further instructions. 4. Dr. Schaefer is to give the patient Tylenol with Codeine or Ultram for pain. Thank you, Dr. Moulton, for this most interesting patient. GEE/MIKE Voice ID: [id number] Report ID: [id number]
== END 2022-02-17 15:38 | disposition home or self-care (01) ==
LOC: ER 23:46 → ERHOLD 02-17 03:17
PROVIDERS: ADMIT Hospitalist; ATTEND Hospitalist
PROC: 0W930ZX Drainage of Oral Cavity and Throat, Open Approach, Diagnostic (ICD-10-PCS; principal; 2022-02-17)
DX: K12.2 Cellulitis and abscess of mouth (principal); J34.0 Abscess, furuncle and carbuncle of nose; K02.9 Dental caries, unspecified; K05.10 Chronic gingivitis, plaque induced; I10 Essential (primary) hypertension; F17.210 Nicotine dependence, cigarettes, uncomplicated; Z71.6 Tobacco abuse counseling; Z20.822 Contact with and (suspected) exposure to COVID-19; J32.9 Chronic sinusitis, unspecified
CPT/HCPCS: 36415; 80053; 85025; 87070; 87077; 87186; 87205; 96365; 96366; 96375; 99283; G0378; J2250; J2270; J2405; J3370; J7030; J7040; U0003